=== PATIENT | male | born 1995 | race Caucasian/White ===

== ENCOUNTER → 2018-10-20 15:13 | Emergency (ER) | payer BC ==
[~2018-10-20 15:13] MED LIST: Cephalexin CAP* 500 MG PO ONE; Tetan/Diph/Pertus SYR(Tdap)* 0.5 ML SYR(BOOSTRIX) use SYR IM ONE
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
[2018-10-20 18:16] VITALS: BP 107/50
== END | disposition home or self-care (01) ==
LOC: ED 15:13
DX: S71.111A Laceration without foreign body, right thigh, initial encounter (principal); W26.0XXA Contact with knife, initial encounter; Y92.9 Unspecified place or not applicable
CPT/HCPCS: 12001; 90715; 99282; A9270-GY